=== PATIENT | male | born 1965 | race Caucasian/White ===

== ENCOUNTER → 2023-02-04 | Day surgery (SDC) | payer OTHER ==
[~2023-02-04] MED LIST: AUGMENTIN 500-1 EACH PO; CLARITIN10 MG PO; COQ-10 PO; CRESTOR5 MG PO; EMGALITY P120 MG/1 M; FLOMAX0.4 MG PO; GLUCOSAMINE CH1 EAC7 PO; GLUCOSAMINE/CHONDR PO; HYDROXYCHLOROQ200 MG PO; LACTATED RINGER'S 1,000 ML ONE; LEVOTHYROXINE125 MCG PO; MULTI-VITAMIN1 EACH PO; NORCO 10-325 T1 EACH PO; VALTREX1000 MG PO; VESICARE5 MG PO; VITAMIN D2000 UNI1 PO; [UNRECOGNIZED DRUG - OTHER] PO
[2023-02-04 07:37] VITALS: BP 121/88
== END | disposition home or self-care (01) ==
LOC: OR 07:21
PROVIDERS: ATTEND Surgery
DX: K29.00 Acute gastritis without bleeding (principal); K29.50 Unspecified chronic gastritis without bleeding; I10 Essential (primary) hypertension; G43.909 Migraine, unspecified, not intractable, without status migrainosus; Z79.899 Other long term (current) drug therapy
CPT/HCPCS: 43239; 88305; 88342; J7121; 88312